=== PATIENT | female | born 1940 | race Caucasian/White ===

== ENCOUNTER 2019-06-10 12:15 | Emergency (ER) | payer MEDICARE ==
[~2019-06-10] VITALS: Ht 162.6 cm; Wt 75.0 kg
[2019-06-10 12:22] VITALS: BP 131/75
[2019-06-10] MEDS ORDERED: METO25 PO (12:36)
[2019-06-10] MEDS ORDERED: IBAN150T16 PO (12:36)
[2019-06-10] MEDS ORDERED: FENT-77 TD (12:36)
[2019-06-10] MEDS ORDERED: TRAM50TA4 PO (12:36)
[2019-06-10] MEDS ORDERED: FOLI0.4T14 PO (12:36)
[2019-06-10] MEDS ORDERED: AMLO2.5T4 PO (12:36)
[2019-06-10] MEDS ORDERED: METO5TAB95 PO (12:36)
[2019-06-10] MEDS ORDERED: COLE625 PO (12:36)
== END 2019-06-10 14:17 | disposition home or self-care (01) ==
LOC: EMS 12:21
DX: G89.29 Other chronic pain (principal); M54.5 Low back pain; Z90.710 Acquired absence of both cervix and uterus; Z90.89 Acquired absence of other organs; Z87.891 Personal history of nicotine dependence; Z88.6 Allergy status to analgesic agent

== ENCOUNTER 2019-06-26 18:49 | Emergency (ER) | payer MEDICARE ==
[~2019-06-26] VITALS: Ht 162.6 cm; Wt 75.0 kg
[~2019-06-26 18:49] MED LIST: AMLO2.5T4 PO; COLE625 PO; FENT-77 TD; FOLI0.4T14 PO; IBAN150T16 PO; METO25 PO; METO5TAB95 PO; TRAM50TA4 PO
[2019-06-26 18:51] VITALS: BP 155/71
[2019-06-26] MEDS ORDERED: METO-558 PO (19:14)
[2019-06-26] MEDS ORDERED: NITR-103 PO (19:14)
[2019-06-26] MEDS ORDERED: CARI350T26 PO (19:14)
[2019-06-26] MEDS ORDERED: METO-296 PO (19:14)
[2019-06-26] MEDS ORDERED: LANS30 PO (19:14)
[2019-06-26] MEDS ORDERED: TRAM50TA4 PO (19:14)
[2019-06-26] MEDS ORDERED: FURO20 PO (19:14)
[2019-06-26] MEDS ORDERED: ACET-66 PO (19:15)
[2019-06-26] MEDS ORDERED: CALC-716 PO (19:15)
[2019-06-26] MEDS ORDERED: IBAN150T16 PO (19:15)
[2019-06-26] MEDS ORDERED: MULT-1203 PO (19:15)
[2019-06-26] MEDS ORDERED: FOLI0.8C PO (19:15)
[2019-06-26] MEDS ORDERED: COLE625 PO (19:15)
[2019-06-26] MEDS ORDERED: AMLO10TA7 PO (19:15)
[2019-06-26] MEDS ORDERED: NYST15PO3 TP (19:15)
[2019-06-26] MEDS ORDERED: DIPH25 PO (19:15)
[2019-06-26] MEDS ORDERED: KDUR10 PO (19:15)
== END 2019-06-26 23:30 | disposition home or self-care (01) ==
LOC: EMS 18:50
DX: G89.29 Other chronic pain (principal); M54.5 Low back pain; I25.2 Old myocardial infarction; M19.90 Unspecified osteoarthritis, unspecified site; Z90.49 Acquired absence of other specified parts of digestive tract; Z90.710 Acquired absence of both cervix and uterus; Z98.890 Other specified postprocedural states; Z87.891 Personal history of nicotine dependence; Z79.899 Other long term (current) drug therapy